=== PATIENT | male | born 1970 | race Caucasian/White ===

== ENCOUNTER 2021-02-23 12:42 | Emergency (ER) | payer OTHER ==
[2021-02-23 12:49] VITALS: BP 134/94
[2021-02-23] MEDS ORDERED: GABAPENTIN TAB600 MG PO (12:55)
[2021-02-23] MEDS ORDERED: CYCLOBENZAPRINE10 M1 PO (12:55)
[2021-02-23] MEDS ORDERED: TESTOSTERO100 MG/1 M (12:55)
== END 2021-02-23 14:46 | disposition home or self-care (01) ==
LOC: ED 12:42
DX: M77.8 Other enthesopathies, not elsewhere classified (principal); X50.1XXA Overexertion from prolonged static or awkward postures, initial encounter; Y93.89 Activity, other specified
CPT/HCPCS: L4386